=== PATIENT | male | born 1960 | race Caucasian/White ===

== ENCOUNTER → 2018-04-10 | Emergency (ER) | payer OTHER ==
[~2018-04-10] VITALS: Ht 167.6 cm; Wt 93.0 kg
[~2018-04-10] MED LIST: BACTRIM DS TAB1 EACH PO; BENADRYL ALLERG25 MG PO; CIPRO500 MG PO; DITROPAN XL10 MG PO; DOLOGESIC 500-1 EACH; DORADOL; DULCOLAX STOOL100 MG PO; MELOXICAM7.5 MG PO; PREDNISONE10 MG/DOSE PO; PROSCAR5 MG; PROTONIX20 MG; TAMS0.4C; TAMS0.4C PO; ULTRACET; URIN D.S. TABL1 EACH PO; ZYRTEC10 M3 PO
== END | disposition home or self-care (01) ==
LOC: ER 19:16
DX: N41.8 Other inflammatory diseases of prostate (principal); N39.0 Urinary tract infection, site not specified; R31.0 Gross hematuria

== ENCOUNTER 2018-10-19 19:32 | Emergency (ER) | payer OTHER ==
[~2018-10-19] VITALS: Ht 167.6 cm; Wt 97.5 kg
[2018-10-20] MEDS ORDERED: NAPROXEN500 MG PO (12:49)
[2018-10-20] MEDS ORDERED: TESSALON PERLE100 M1 PO (12:49)
[2018-10-20] MEDS ORDERED: PROMETH-CODEIN 65 ML PO (12:49)
[2018-10-20] MEDS ORDERED: ZITHROMAX500 MG PO (12:50)
== END 2018-10-20 13:23 | disposition home or self-care (01) ==
LOC: ER 19:32
DX: J06.9 Acute upper respiratory infection, unspecified (principal)

== ENCOUNTER 2019-05-26 01:12 | Emergency (ER) | payer OTHER ==
[~2019-05-26] VITALS: Ht 167.6 cm; Wt 97.5 kg
[~2019-05-26 01:12] MED LIST changes: +NAPROXEN500 MG PO; +PROMETH-CODEIN 65 ML PO; +TESSALON PERLE100 M1 PO; +ZITHROMAX500 MG PO
[2019-05-26] MEDS ORDERED: XARELTO10 MG (01:29)
[2019-05-26] MEDS ORDERED: KETO10TA2 PO (02:36)
== END 2019-05-26 02:41 | disposition home or self-care (01) ==
LOC: ER 01:12
DX: S40.011A Contusion of right shoulder, initial encounter (principal); W01.198A Fall on same level from slipping, tripping and stumbling with subsequent striking against other object, initial encounter; Y93.89 Activity, other specified; Y92.018 Other place in single-family (private) house as the place of occurrence of the external cause; Y99.8 Other external cause status

== ENCOUNTER 2019-06-07 14:09 | Outpatient (CLI) | payer OTHER ==
[~2019-06-07 14:09] MED LIST changes: +KETO10TA2 PO; +XARELTO10 MG
== END 2019-06-07 14:18 | disposition home or self-care (01) ==
LOC: EKG 14:09
DX: I10 Essential (primary) hypertension (principal)

== ENCOUNTER 2019-06-14 04:45 | Day surgery (SDC) | payer OTHER ==
[2019-06-14] MEDS ORDERED: PERCOCET 5-3251 EACH PO (13:19)
[2019-06-14] MEDS ORDERED: DUI500 PO (13:19)
== END 2019-06-14 19:25 | disposition home or self-care (01) ==
LOC: CIR.AMB 04:45
DX: M75.121 Complete rotator cuff tear or rupture of right shoulder, not specified as traumatic (principal); M19.011 Primary osteoarthritis, right shoulder; M65.811 Other synovitis and tenosynovitis, right shoulder
CPT/HCPCS: 23430; 15271; 23120; 23130; 23412; Q4107

== ENCOUNTER 2021-05-09 12:48 | Outpatient (CLI) | payer OTHER ==
[~2021-05-09 12:48] MED LIST changes: +DUI500 PO; +PERCOCET 5-3251 EACH PO; +TRAMADOL HCL50 MG PO
== END 2021-05-09 12:59 | disposition home or self-care (01) ==
LOC: RAD 12:48
PROVIDERS: ATTEND Internal Medicine Cardiovascular Disease
DX: M25.562 Pain in left knee (principal); M54.59 Other low back pain

== ENCOUNTER 2021-05-15 11:49 | Outpatient (CLI) | payer OTHER | END 2021-05-15 11:50 | disposition home or self-care (01) | LOC: SONOGRAMA 11:49 | PROVIDERS: ATTEND Internal Medicine Cardiovascular Disease | DX: M12.9 Arthropathy, unspecified (principal) ==

== ENCOUNTER 2022-01-07 13:45 | Outpatient (CLI) | payer OTHER | END 2022-01-07 13:52 | disposition home or self-care (01) | LOC: RAD 13:45 | PROVIDERS: ATTEND Internal Medicine Cardiovascular Disease | DX: M12.9 Arthropathy, unspecified (principal) ==

== ENCOUNTER 2022-06-30 12:52 | Emergency (ER) | payer OTHER ==
[~2022-06-30] VITALS: Ht 167.6 cm; Wt 89.8 kg
== END 2022-06-30 23:40 | disposition home or self-care (01) ==
LOC: ER 12:52
DX: R31.9 Hematuria, unspecified (principal); I10 Essential (primary) hypertension; Z86.711 Personal history of pulmonary embolism; Z91.013 Allergy to seafood